=== PATIENT | female | born 1990 ===

== ENCOUNTER 2021-12-28 16:42 | Emergency (ER) | payer MEDICARE ==
[2021-12-28 21:38] LABS: Basophils # (Auto) 0.1 K/mm3 (0.0-0.1); Basophils % (Auto) 0.6 % (0.0-1.8); Eosinophils # (Auto) 0.5 K/mm3 (0.0-0.4); Eosinophils % (Auto) 4.8 % (0.0-4.3); Lymphocytes # (Auto) 2.6 K/mm3 (1.2-5.4); Lymphocytes % (Auto) 27.2 % (13.4-35.0); Mean Corpuscular HGB Conc 29 % (30-34); Mean Corpuscular Volume 76 fl (79-97); Monocytes % (Auto) 10.6 % (0.0-7.3); Platelet Count 279 K/mm3 (140-440); Red Blood Count 4.33 M/mm3 (3.65-5.03); Red Cell Distribution Width 16.6 % (13.2-15.2)
[2021-12-28 21:49] LABS: Hematocrit 32.8 % (30.3-42.9); Hemoglobin 9.5 gm/dl (10.1-14.3)
[2021-12-28 21:51] LABS: Blood Urea Nitrogen 12 mg/dL (7-17); Calcium 9.2 mg/dL (8.4-10.2); Hemolysis Index 2
[2021-12-28 21:57] LABS: BUN/Creatinine Ratio 17
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
[2021-12-29] MEDS ORDERED: diphenhydrAMINE 50 MG/ML VIAL IM PRN (08:57)
--- NOTE | 2021-12-29 09:01 | Event Note ---
Date: 12/29/21 The patient was evaluated in the emergency department for symptoms described in the history of present illness. He/she was evaluated in the context of the global COVID-19 pandemic, which necessitated consideration that the patient might be at risk for infection with the virus that causes COVID-19. Institutional protocols and algorithms that pertain to the evaluation of patients at risk for COVID-19 are in a state of rapid change based on information released by regulatory bodies including the CDC and federal and state organizations. These policies and algorithms were followed during the patient's care in the emergency department. Please note that these policies, procedures and recommendations changed on a rapid basis. [id number] evaluation performed. Patient currently in seclusion, rocking back and forth She is breathing spontaneously, and moving 4 extremities. Nursing team reports that patient is agitated, pulling off her close, running around naked. They further report that the patient does not respond to verbal de-escalation techniques or show of force. Therefore, seclusion orders are initiated. As needed Benadryl ordered for agitation, test ordered as one was not ordered yesterday. Called up the lab, have requested a test add-on. Laboratory studies and vital signs are otherwise reviewed and appreciated Vital Signs 12/28/21 12/28/21 18:15 20:17 Temperature 97.2 F L 99.1 F Pulse Rate 89 60 Respiratory 16 18 Rate Blood Pressure 154/89 120/86 [Left] O2 Sat by Pulse 100 100 Oximetry Lab Results 12/28/21 12/28/21 12/28/21 Range/Units 21:17 21:17 21:17 WBC 9.4 (4.5-11.0) K/mm3 RBC 4.33 (3.65-5.03) M/mm3 Hgb 9.5 L (10.1-14.3) gm/dl Hct 32.8 (30.3-42.9) % MCV 76 L (79-97) fl MCH 22 L (28-32) pg MCHC 29 L (30-34) % RDW 16.6 H (13.2-15.2) % Plt Count 279 (140-440) K/mm3 Lymph % (Auto) 27.2 (13.4-35.0) % [place] % (Auto) 10.6 H (0.0-7.3) % Eos % (Auto) 4.8 H (0.0-4.3) % Baso % (Auto) 0.6 (0.0-1.8) % Lymph # (Auto) 2.6 (1.2-5.4) K/mm3 [place] # (Auto) 1.0 H (0.0-0.8) K/mm3 Eos # (Auto) 0.5 H (0.0-0.4) K/mm3 Baso # (Auto) 0.1 (0.0-0.1) K/mm3 Seg Neutrophils % 56.8 (40.0-70.0) % Seg Neutrophils # 5.4 (1.8-7.7) K/mm3 Sodium 139 (137-145) mmol/L Potassium 3.5 L (3.6-5.0) mmol/L Chloride 104.7 (98-107) mmol/L Carbon Dioxide 22 (22-30) mmol/L Anion Gap 16 mmol/L BUN 12 (7-17) mg/dL Creatinine 0.7 (0.6-1.2) mg/dL Estimated GFR > 60 ml/min BUN/Creatinine Ratio 17 % Glucose 90 (65-100) mg/dL Calcium 9.2 (8.4-10.2) mg/dL Salicylates < 0.3 L (2.8-20.0) mg/dL Acetaminophen (10.0-30.0) ug/mL Plasma/Serum Alcohol (0-0.07) % 12/28/21 12/28/21 Range/Units 21:17 21:17 WBC (4.5-11.0) K/mm3 RBC (3.65-5.03) M/mm3 Hgb (10.1-14.3) gm/dl Hct (30.3-42.9) % MCV (79-97) fl MCH (28-32) pg MCHC (30-34) % RDW (13.2-15.2) % Plt Count (140-440) K/mm3 Lymph % (Auto) (13.4-35.0) % [place] % (Auto) (0.0-7.3) % Eos % (Auto) (0.0-4.3) % Baso % (Auto) (0.0-1.8) % Lymph # (Auto) (1.2-5.4) K/mm3 [place] # (Auto) (0.0-0.8) K/mm3 Eos # (Auto) (0.0-0.4) K/mm3 Baso # (Auto) (0.0-0.1) K/mm3 Seg Neutrophils % (40.0-70.0) % Seg Neutrophils # (1.8-7.7) K/mm3 Sodium (137-145) mmol/L Potassium (3.6-5.0) mmol/L Chloride (98-107) mmol/L Carbon Dioxide (22-30) mmol/L Anion Gap mmol/L BUN (7-17) mg/dL Creatinine (0.6-1.2) mg/dL Estimated GFR ml/min BUN/Creatinine Ratio % Glucose (65-100) mg/dL Calcium (8.4-10.2) mg/dL Salicylates (2.8-20.0) mg/dL Acetaminophen 5.0 L (10.0-30.0) ug/mL Plasma/Serum Alcohol < 0.01 (0-0.07) % test is negative. Appreciate psychiatric team's recommendations and input.
[2021-12-29] MEDS ORDERED: HALOPERIDOL LACTATE 5 MG/1 ML INJ IM PRN (10:02)
[2021-12-29] MEDS ORDERED: LORazepam 2 MG/ML VIAL IM PRN (10:02)
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
[2021-12-29 10:44] LABS: Bilirubin,Urine NEG (Negative); Blood,Urine SM (Negative); Color,Urine Straw (Yellow); Protein,Urine <15 mg/dL mg/dL (Negative); Urobilinogen,Urine < 2.0 mg/dL (<2.0)
[2021-12-29 10:52] LABS: Amphetamine Screen,Urine Negative; Benzodiazepines Screen,Urine Negative; Cannabinoid Screen,Urine Negative; Cocaine Screen,Urine Negative; Methadone Screen,Urine Negative; Opiate Screen,Urine Negative
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
--- NOTE | 2021-12-30 12:27 | Emergency Department Report ---
Blank Doc - Documentation Documentation: chart reviewed 30 yo female here on 1013 for psychosis requiring IM meds for cooperation as per nurse delay in covid test due to lack of pt cooperation taking po zyprexa awaiting placement.
--- NOTE | 2021-12-31 09:34 | Progress Note ---
Subjective - Reason for Consult Consult date: 12/31/21 Reason for consult: psychosis - Chief Complaint Chief complaint: The patient was seen today. She is adamant that this is not the correct name listed on the chart. She denies SI/HI or hallucinations. The nurse note says the patient has been pacing the floor saying random saying things like the people want to have sex with me, they have dicks in my mouth. Pt was medicated with PRN on file. Pt tolerated meds well. REVIEW OF SYSTEMS Constitutional: Negative for weight loss ENT: Negative for stridor Respiratory: Negative for cough or hemoptysis All other systems reviewed and are negative MENTAL STATUS EXAMINATION General Appearance and Behavior: Age appropriate, wearing appropriate clothes, cooperative, polite with questioning, good eye contact, calm Cooperation: cooperative Psychomotor Behavior: Psychomotor normal Mood: Disorganized Affect and affective range: Congruent with stated mood Thought Process: Flight of ideas Thought Content: delusions, hallucinations Speech: Normal volume, Regular rate and rhythm Suicidal Ideation: Denies Homicidal Ideation: Denies Hallucination: A/V Delusions: Yes Impulse Control: limited Insight and Judgment: Limited Memory: Limited Attention: inattentive Orientation: Alert and oriented Diagnoses Schizophrenia Treatment Plan 1013 Zyprexa 10mg po BID Start Depakote DR 125mg po BID PSYCHOTHERAPY: Supportive psychotherapy provided MEDICAL: Per primary team DELIRIUM PRECAUTIONS: Please re-orient patient frequently, keep lights on during the day, and minimize benzodiazepines and opiates as these medications could worsen patient's confusion. IMPLANT COORDINATOR: Per medical team DISPOSITION: Recommend acute psychiatric inpatient treatment. Will follow. Thank you for the consult. Case staffed with Dr. Ricks Mental Status Exam - Vital signs Last Vital Signs Temp 98.6 F 12/31/21 07:16 Pulse 62 12/31/21 07:16 Resp 18 12/31/21 07:16 BP 124/74 12/31/21 07:16 Pulse Ox 100 12/31/21 07:16
[2021-12-31] MEDS: DIVALPROEX DR 125 MG TAB PO SCH ×2 (10:37→22:00)
--- NOTE | 2021-12-31 11:40 | Emergency Department Report ---
Blank Doc - Documentation Documentation: 30-year-old female with history of schizophrenia currently on 1013 secondary to acute psychosis. Chart and vital signs reviewed. Tolerating p.o. medication. Awaiting placement.
[2022-01-01] MEDS: DIVALPROEX DR 125 MG TAB PO SCH ×2 (10:27→22:00)
--- NOTE | 2022-01-01 11:10 | Progress Note ---
Subjective - Reason for Consult Consult date: 01/01/22 Reason for consult: psychosis - Chief Complaint Chief complaint: The patient was seen today. She is calm and cooperative. She is polite. The patient says she is ready to go and talk to her caregiver. She denies SI/HI or hallucinations of any kind. She says "I feel alright, but yall really do have the wrong name on the chart." She says she slept good. REVIEW OF SYSTEMS Constitutional: Negative for weight loss ENT: Negative for stridor Respiratory: Negative for cough or hemoptysis All other systems reviewed and are negative MENTAL STATUS EXAMINATION General Appearance and Behavior: Age appropriate, wearing appropriate clothes, cooperative, polite with questioning, good eye contact, calm Cooperation: cooperative Psychomotor Behavior: Psychomotor normal Mood: alright Affect and affective range: Congruent with stated mood Thought Process: goal directed Thought Content: None Speech: Normal volume, Regular rate and rhythm Suicidal Ideation: Denies Homicidal Ideation: Denies Hallucination: Denies Delusions: None elicited Impulse Control: limited Insight and Judgment: Limited Memory: Limited Attention: inattentive Orientation: Alert and oriented Diagnoses Schizophrenia Treatment Plan d/c 1013 Zyprexa 10mg po BID Depakote DR 125mg po BID PSYCHOTHERAPY: Supportive psychotherapy provided MEDICAL: Per primary team DELIRIUM PRECAUTIONS: Please re-orient patient frequently, keep lights on during the day, and minimize benzodiazepines and opiates as these medications could worsen patient's confusion. INVENTORY TAKER: Per medical team DISPOSITION: Do not recommend acute psychiatric inpatient treatment. The patient to follow up with outpatient psych for 7 to 14 days upon discharge Will sign off. Thank you for this consult. Case staffed with Dr. Ricks Mental Status Exam - Vital signs Last Vital Signs Temp 97.7 F 01/01/22 10:24 Pulse 92 H 01/01/22 10:24 Resp 16 01/01/22 10:24 BP 116/74 01/01/22 10:24 Pulse Ox 100 01/01/22 10:29
--- NOTE | 2022-01-01 11:28 | Event Note ---
Date: 01/01/22 Patient today is calm and cooperative. Patient denied any suicidal or homicidal ideation. No visual or auditory hallucination. Patient has been evaluated by our psychiatric team and recommended discharge and outpatient follow-up. Patient is medically and psychiatrically stable for discharge.
--- NOTE | 2022-01-01 19:41 | Event Note ---
Date: 01/01/22 The patient was put in the system under the wrong name, so scripts were also written under that name. Attempted to [facility]. Unable to call in scripts at this time. The pharmacy was closed and mailbox was full.
[2022-01-02] MEDS: DIVALPROEX DR 125 MG TAB PO SCH (10:56)
[2022-01-02 13:47] VITALS: BP 110/84
== END 2022-01-02 13:47 ==
LOC: ED 16:42 → EDBD 16:42 → ED 01-02 13:47
DX: R45.1 Restlessness and agitation (principal); F29 Unspecified psychosis not due to a substance or known physiological condition
CPT/HCPCS: 36415; 80048; 80307; 81001; 84702; 85025; 96372; 99285; J1200; J1630; J2060; 80320; 99284; G0480